=== PATIENT | female | born 1950 | race Caucasian/White ===

== ENCOUNTER 2019-01-05 09:26 | Day surgery (SDC) | payer MEDICARE, OTHER ==
[~2019-01-05] VITALS: Ht 172.7 cm; Wt 131.5 kg
[~2019-01-05 09:26] MED LIST: ALBU90OI61 INH; ATOR40TA PO; BUSP10 PO; Bumetanide0.5 MG PO; Cleocin HCl300 MG PO; FURO20 PO; HYDACE10B PO; HYDR-86; HYDR-86 PO; IBUP800; Keflex500 MG PO; LISI20 PO; Micro-K10 MEQ PO; Norco 5-325 Ta1 EACH PO; OMEPRAZOLE CAP 20M; Omeprazole20 M1 PO; Prozac20 MG PO; SUPREP BOWEL P354 ML; TRIHYD253B
--- NOTE | 2019-01-05 10:15 | NUR ---
01/05/19 Kalp[place]5 Sam Maurer BLOCK ON LEFT SIDE AND FLUSHED W/ 10ML SALINE
== END 2019-01-05 11:42 | disposition home or self-care (01) ==
LOC: ORSCSDS 09:26
PROVIDERS: Orthopaedic Surgery
PROC: 01N50ZZ Release Median Nerve, Open Approach (ICD-10-PCS; principal; 2019-01-05 10:30)
DX: G56.02 Carpal tunnel syndrome, left upper limb (principal); I10 Essential (primary) hypertension; E11.9 Type 2 diabetes mellitus without complications; J45.909 Unspecified asthma, uncomplicated; E66.01 Morbid (severe) obesity due to excess calories; Z68.41 Body mass index [BMI] 40.0-44.9, adult; Z79.899 Other long term (current) drug therapy; E78.5 Hyperlipidemia, unspecified; Z87.891 Personal history of nicotine dependence
CPT/HCPCS: 82947; J0690; J2001; J2250; J3010